=== PATIENT | male | born 1960 | race Caucasian/White ===

== ENCOUNTER 2021-02-02 11:30 | Observation (INO) | payer OTHER ==
[~2021-02-02] VITALS: Ht 175.3 cm; Wt 94.5 kg
[2021-02-02 11:58] LABS: BASOPHILS ABSOLUTE AUTO 0.03 K/mm3 (0.00-0.23); BASOPHILS PERCENT AUTO 0 % (0-2); EOSINOPHILS ABSOLUTE AUTO 0.05 K/mm3 (0.00-0.68); EOSINOPHILS PERCENT AUTO 1 % (0-6); Hematocrit 50.8 % (37.0-53.0); Hemoglobin 17.8 g/dL (13.5-17.5); IMMATURE GRAN ABSOLUTE AUTO 0.03 K/mm3 (0.00-0.10); IMMATURE GRAN PERCENT AUTO 0 % (0-1); LYMPHOCYTES PERCENT AUTO 22 % (21-46); MONOCYTES ABSOLUTE AUTO 0.46 K/mm3 (0.16-1.47); MONOCYTES PERCENT AUTO 4 % (4-13); Mean Corpuscular HGB 30.9 pg (26.0-34.0); Mean Corpuscular Volume 88 fL (80-100); Mean Platelet Volume 10.5 fL (9.1-12.4); NEUTROPHILS ABSOLUTE AUTO 7.63 K/mm3 (1.96-9.15); NEUTROPHILS PERCENT AUTO 73 % (41-73); Platelet Count 290 K/mm3 (150-400); RDW Coefficient Variation 11.9 % (11.7-14.2); RDW Standard Deviation 37.6 fL (35.1-46.3); Red Blood Cell Count 5.76 M/mm3 (4.30-5.90)
[2021-02-02 12:16] LABS: Alanine Aminotransfer (ALT/SGP 34 U/L (12-78); Albumin, Blood 4.1 g/dL (3.4-5.0); Albumin/Globulin Ratio 1.4 (0.8-1.8); Alk Phos 55 U/L (50-136); Anion Gap 6 mmol/L (6-16); Aspartate Aminotrans (AST/SGOT 19 U/L (12-37); Bilirubin, Total 0.5 mg/dL (0.1-1.0); Blood Urea Nitrogen 19 mg/dL (8-24); Bun/Creatinine Ratio 16.7 (12.0-20.0); CO2, Blood 26 mmol/L (21-32); Chloride, Blood 105 mmol/L (98-108); Creatinine, Blood 1.14 mg/dL (0.60-1.20); Globulin, Blood 2.9 g/dL (2.2-4.0); Glomerular Filtration Rate >60 (60-); Glucose, Blood 185 mg/dL (70-99); Magnesium, Blood 1.9 mg/dL (1.6-2.4); Potassium, Blood 4.2 mmol/L (3.5-5.5); Sodium, Blood 137 mmol/L (136-145); Troponin I <0.015 ng/mL (0.000-0.040)
[2021-02-02] MEDS ORDERED: LOSARTAN-HCTZ1 EACH PO (14:20)
[2021-02-02] MEDS ORDERED: Amlodipine Bes2.5 MG PO (14:20)
[2021-02-02] MEDS ORDERED: Imdur30 MG PO (14:20)
[2021-02-02] MEDS ORDERED: OMEP20ER PO (14:21)
[2021-02-02] MEDS ORDERED: ROSUVASTATIN CA10 MG PO (14:22)
[2021-02-02 15:17] LABS: SARS-Cov-2 (COVID-19) PCR, MMC NEGATIVE (NEGATIVE)
--- NOTE | 2021-02-02 18:39 | NUR ---
SHIFT SUMMARY PT A&OX4, VSS/TELE S @ 91 BPM, CBG/CNI. DENIES CP OR SOB. [place] PO. AMB SBA TO BRP. VOIDING WELL. PLAN FOR ECHO TOMORROW. WILL REPORT TO ONCOMING NOC RN.
--- NOTE | 2021-02-02 20:47 | NUR ---
RECEIVED REPORT AND ASSUMED CARE OF PT. HE IS AWAKE, ALERT AND ORIENTED, SITTING UP IN BED. PT AND (VIA TELEPHONE) REQUEST THAT THE TROPONIN BE REPEATED. HE IS A STANDBY ASSIST TO THE BATHROOM, URINATING WITHOUT DIFFICULTY. MELANIA.
--- NOTE | 2021-02-03 05:36 | NUR ---
SHIFT SUMMARY: GRANT IS A&OX4. VSS, NO ACUTE EVENTS OVERNIGHT, REPEAT TROPONIN NEGATIVE. HE IS INDEPENDENT IN THE ROOM, TOLERATING PO INTAKE WELL, AND VOIDING WITHOUT DIFFICULTY. HE IS LYING IN BED WITH THE CALL LIGHT IN REACH. WILL REPORT TO DAY SHIFT RN.
--- NOTE | 2021-02-03 11:13 | NUR ---
ECHO IN PROGRESS
--- NOTE | 2021-02-03 15:47 | NUR ---
echocardiogram complete
[2021-02-03] MEDS ORDERED: TICA90TA PO (17:07)
[2021-02-03] MEDS ORDERED: ASPI81CH PO (17:07)
--- NOTE | 2021-02-03 18:16 | NUR ---
DISCHARGE INSTRUCTIONS REVIEWED WITH PATIENT AND PATIENTS QUESTIONS ANSWERED. PHARMACY IS NOT OPEN AT THIS TIME TO ALLOW PT TO FILL [facility] PRESCRIPTION SO PATIENT GIVEN HS DOSE PRIOR TO DISCHARGE. PT AMBULATING IN ROOM, DENIES PAIN OR SOB. PT STATES WILL PHONE CARDIAC SURGERY TOMORROW AM. PT WAITING FOR TO ARRIVE AND WILL BE DISCHARGED TO HOME
--- NOTE | 2021-02-03 18:38 | NUR ---
1832 DISCHARGED TO HOME ACCOMPANIED BY
== END 2021-02-03 18:30 | disposition home or self-care (01) ==
LOC: ER 11:30 → SURS 11:31
PROVIDERS: Student in an Organized Health Care Education/Training Program; ADMIT Hospitalist
DX: R55 Syncope and collapse (principal); I25.10 Atherosclerotic heart disease of native coronary artery without angina pectoris; L50.0 Allergic urticaria; T45.525A Adverse effect of antithrombotic drugs, initial encounter; R07.9 Chest pain, unspecified; I10 Essential (primary) hypertension; E78.5 Hyperlipidemia, unspecified; I25.2 Old myocardial infarction; Z79.02 Long term (current) use of antithrombotics/antiplatelets; Z20.822 Contact with and (suspected) exposure to COVID-19
CPT/HCPCS: 36415; 71046; 80053; 83735; 83880; 84484; 85025; 93005; 93010; 93306; 96372; 99285-25; A9270; G0378; J1650; U0004

== ENCOUNTER 2025-05-17 07:51 | Day surgery (SDC) | payer OTHER ==
[~2025-05-17] VITALS: Ht 175.3 cm; Wt 100.6 kg
[~2025-05-17 07:51] MED LIST: ASPI81CH PO; Amlodipine Bes2.5 MG PO; Imdur30 MG PO; LOSARTAN-HCTZ1 EACH PO; OMEP20ER PO; ROSUVASTATIN CA10 MG PO; TICA90TA PO
[2025-05-17] MEDS ORDERED: TADA10TA (08:01)
[2025-05-17] MEDS ORDERED: METO50ER (08:01)
[2025-05-17] MEDS ORDERED: ESOM20 (08:02)
[2025-05-17] MEDS ORDERED: MAGMIND48 MG (08:02)
[2025-05-17] MEDS ORDERED: [UNRECOGNIZED DRUG - OTHER] (08:03)
[2025-05-17] MEDS ORDERED: MAGNESIUM (08:03)
[2025-05-17 10:42] VITALS: BP 135/77
== END 2025-05-17 10:46 | disposition home or self-care (01) ==
LOC: ORSCSDS 07:51
PROVIDERS: Internal Medicine Gastroenterology
PROC: 0DJ08ZZ Inspection of Upper Intestinal Tract, Via Natural or Artificial Opening Endoscopic (ICD-10-PCS; principal; 2025-05-17 09:15)
DX: K21.9 Gastro-esophageal reflux disease without esophagitis (principal); R10.13 Epigastric pain
CPT/HCPCS: J2704; J7120